=== PATIENT | female | born 1955 | race Caucasian/White ===

== ENCOUNTER 2023-12-26 09:59 | Outpatient (CLI) | payer MEDICARE ==
[2023-12-26] MEDS ORDERED: Magnevist 469MG/ML 20 ML VIAL ONE (12:49)
== END 2023-12-26 10:00 | disposition home or self-care (01) ==
LOC: CSHMRI 09:59
PROVIDERS: ATTEND Psychiatry & Neurology Neurology
DX: G44.59 Other complicated headache syndrome (principal); I67.89 Other cerebrovascular disease
CPT/HCPCS: 70553; A9579